=== PATIENT | male | born 1995 ===

== ENCOUNTER 2020-10-03 23:45 | Emergency (ER) | payer SELFPAY ==
--- NOTE | 2020-10-04 00:48 | Emergency Department Report ---
ED Rash HPI - HPI Chief Complaint: Skin Rash Stated Complaint: BILATERAL LEG RASH/BURNING/ICHING Time Seen by Provider: 10/04/20 00:42 Duration: 2 Days Location: Lower Extremities Suspected Cause: Plant (Poison allie contact resulted in a rash to the lower leg in the popliteal region which is progressively worsening since the onset a couple days ago. [id number] treatment has been unsuccessful.) Rash Symptoms: Yes Itching, No Facial Swelling, No Tongue/Oral Swelling, No Breathing Difficulties, No Choking Sensation, No Wheezing/Dyspnea, No Blistering, No Fever Severity: mild ED Review of Systems ROS: Stated complaint: BILATERAL LEG RASH/BURNING/ICHING Other details as noted in HPI Comment: All other systems reviewed and negative ED Past Medical Hx - Past Medical History Previous Medical History?: No - Surgical History Past Surgical History?: No - Social History Smoking Status: Never Smoker Substance Use Type: None - Medications Home Medications: Home Medications Medication Instructions Recorded Confirmed Last Taken Type Betamethasone/Propylene Glyc 1 gm TP BID #45 oint...g. 10/04/20 Unknown Rx [Diprolene 0.05% Ointment] hydrOXYzine HCL [Atarax] 25 mg PO Q6HR PRN #20 tablet 10/04/20 Unknown Rx predniSONE [Deltasone] 20 mg PO QDAY #5 tab 10/04/20 Unknown Rx Rash Exam - Exam General: Vital signs noted. No distress. Alert and acting appropriately. HEENT: No Periorbital Edema, No Conjuctival Injection, No Chemosis, No Perioral Edema, No Tongue Edema, No Uvular Edema, No Compromised Airway, No Drooling Lungs: Yes Good Air Exchange (Normal Breath Sounds), No Wheezes, No Ronchi, No Stridor, No Cough, No Labored Respirations, No Retractions, No Use of Accessory Muscles, No Other Abnormal Lung Sounds Heart: Yes Regular, No Murmur Front/Back of Body, Lg (Color): 1 - Rash 2 - Rash Skin: Yes Maculopapular Rash, Yes Weeping, Yes Erythema, No Bulla(e), No Excoriations, No Edema Other: Positive: Abdomen Normal, Neurologic Normal, Musculoskeletal Normal Critical care attestation.: If time is entered above; I have spent that time in minutes in the direct care o f this critically ill patient, excluding procedure time. ED Disposition Clinical Impression: Contact dermatitis Disposition: - TO HOME OR SELFCARE Is pt being admited?: No Does the pt Need Aspirin: No Condition: Stable Instructions: Poison Allie Dermatitis, [id number], Contact Dermatitis, [id number] Prescriptions: hydrOXYzine HCL [Atarax] 25 mg PO Q6HR PRN #20 tablet PRN Reason: Itching predniSONE [Deltasone] 20 mg PO QDAY #5 tab Betamethasone/Propylene Glyc [Diprolene 0.05% Ointment] 1 gm TP BID #45 oint...g. Referrals: [facility] [Provider Group] - 3-5 Days
== END 2020-10-04 01:02 | disposition home or self-care (01) ==
LOC: ED 23:45
CPT/HCPCS: 99281